=== PATIENT | male | born 1995 | race Caucasian/White ===

== ENCOUNTER → 2018-09-08 14:21 | Outpatient (CLI) | payer OTHER, SELFPAY ==
[2018-09-08 14:45] VITALS: BP 134/81; PULSE 70; RESP 18; TEMP 36.7; O2SAT 100; BMI 22.8
--- NOTE | 2018-09-08 15:06 | WMO.HTC_ITS ---
Problem List (1) Hemophilia B in male Status: Chronic Subjective Date of Service:: 09/08/18 Chief Complaint: F/u for Hemophilia History of Present Illness: 23y.o.man with Hemophilia B-activity 5%, comes for follow up. Needed replacement therapy once this yr when something feel on his foot. He feels well. No dental problems. 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 Family History Paternal Past Medical History: Unknown Maternal Past Medical History: Unknown Past Medical History (Last Updated 09/08/18 @ 14:38 by Esmer Tierney) Factor IX deficiency (Acute) Hemophilia B in male (Acute) Past Surgical History (Last Updated 09/08/18 @ 14:54 by Esmer Tierney) No history of previous surgery (Acute) Family History (Last Updated 09/08/18 @ 14:55 by Esmer Tierney) Other No pertinent family history Allergies/Adverse Reactions: Allergy/AdvReac Type Severity Reaction Status Date / Time aspirin AdvReac Severe BLEEDING Verified 09/08/18 14:44 Risk Factors Social History Smoking Status Never smoker Tobacco Risk Data: Tobacco Risk Smoking Status Never smoker Type of tobacco: Smokeless tobacco usage: Items/Day: Year started: Years used: Counseled to quit/cut down: Reason for no counseling performed: Reason for no pharmacotherapy: Tobacco use comments: Passive smoke exposure: No Substance Risk Drug use: No Caffeine use [drinks/day]: 1 Alcohol use: No Type of alcohol: Drinks per day: Has patient felt the need to cut down: Has the patient been annoyed by complaints: Has the patient felt guilty about drinking: 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: Comments: Review of Systems Constitutional:: Denies: Fever, Sweats, Weight loss, Appetite change, Chills Cardiovascular:: Denies: Chest pain, Palpitations, Dyspnea on exertion, Orthopnea, PND, Shortness of breath Respiratory: Denies: Cough, Hemoptysis, Shortness of Breath, Wheezing Gastrointestinal:: Denies: Abdominal pain, Nausea, Vomiting, Diarrhea, Constipation, Hematochezia Genitourinary: Denies: Dysuria, Hematuria, 15, Flank pain Musculoskeletal:: Denies: Back pain, Myalgia, Arthralgia Skin: Denies: Rash, Skin Changes, Wounds Neurological:: Denies: Headache, Dizziness, Visual changes, Tinnitus, Hearing loss Psychiatric: Denies: Anxiety, Depression, Homicidal Ideations, Suicidal Ideations Vital Signs Height 5 ft 9 in Weight: 70.125 kg Weight in Pounds 154.6 lbs Pulse Ox 100 Temperature 98.1 F Pulse Rate 70 Respiratory Rate 18 Blood Pressure 134/81 Blood Pressure Position Sitting - Physical Exam General: Alert, Oriented x3, No apparent distress HEENT: Atraumatic, PERRLA, EOMI, Normocephalic Oropharynx:: Dry mucosa Neck:: Supple, Trachea midline. Negative for: JVD, bilateral Cardiac:: Regular rate, Regular rhythm, Normal S1, Normal S2. Negative for: Murmur Lungs: Clear to auscultation, Excusion symmetrical. Negative for: Rhonchi, Wheezes Abdomen:: Bowel sounds x 4, Soft, Non-tender, Non-distended. Negative for: Hepatosplenomegaly Extremities:: Negative for: Cyanosis, Edema Neurological: Neuro grossly intact Skin:: Negative for: Lesions, Rash, Petechiae, Ecchymosis Psychiatric:: Appropriate affect, Euthymic Lymphatics:: Negative for: Cervical lymphadenopathy, Supraclavicular lymphadenopathy, Axillary lymphadenopathy Assessment and Plan Hemophilia B, clinically stable. Plan is to continue expectant management with Factor replacement as needed. RTC 1 yr. Primary Care Provider: No Primary Care Phys Referring Provider: Pardeep Rouse MD
== END ==
PROVIDERS: Referring Provider Internal Medicine Hematology & Oncology; Visit Provider Internal Medicine Medical Oncology
DX: D67 Hereditary factor IX deficiency (principal)

== ENCOUNTER 2019-07-06 08:40 | Outpatient (CLI) | payer OTHER, SELFPAY ==
--- NOTE | 2019-07-06 08:33 | HTC.HP4 ---
- Problem List (1) Hemophilia B in male Status: Chronic Subjective Date of Service:: 07/06/19 Chief Complaint: Hemophilia follow-up History of Present Illness: Hemophilia B acute visit May 2019 had acute upper GI bleed , transferred to [facility], transfused 2 units of packed red blood cells took 4 doses of F IX. 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 Family History Paternal Past Medical History: Unknown Maternal Past Medical History: Unknown Past Medical History (Last Updated 09/08/18 @ 14:38 by Esmer Tierney) Factor IX deficiency (Acute) Hemophilia B in male (Acute) Past Surgical History (Last Updated 09/08/18 @ 14:54 by Esmer Tierney) No history of previous surgery (Acute) Family History (Last Updated 09/08/18 @ 14:55 by Esmer Tierney) Other No pertinent family history Social History Smoking Status Never smoker Allergies/Adverse Reactions: Allergy/AdvReac Type Severity Reaction Status Date / Time aspirin AdvReac Severe BLEEDING Verified 09/08/18 14:44 Risk Factors Social History Smoking Status Never smoker Tobacco Risk Data: Tobacco Risk Smoking Status Never smoker Type of tobacco: Smokeless tobacco usage: Items/Day: Year started: Years used: Counseled to quit/cut down: Reason for no counseling performed: Reason for no pharmacotherapy: Tobacco use comments: Passive smoke exposure: Substance Risk Drug use: Caffeine use [drinks/day]: Alcohol use: Type of alcohol: Drinks per day: Has patient felt the need to cut down: Has the patient been annoyed by complaints: Has the patient felt guilty about drinking: 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: Comments: Review of Systems Constitutional:: Denies: Fever, Sweats, Weight loss, Appetite change, Chills Cardiovascular:: Denies: Chest pain, Palpitations, Dyspnea on exertion, Orthopnea, PND, Shortness of breath Respiratory: Denies: Cough, Hemoptysis, Shortness of Breath, Wheezing Gastrointestinal:: Denies: Abdominal pain, Nausea, Vomiting, Diarrhea, Constipation, Hematochezia Genitourinary: Denies: Dysuria, Hematuria, 15, Flank pain Musculoskeletal:: Denies: Back pain, Myalgia, Arthralgia Skin: Denies: Rash, Skin Changes, Wounds Neurological:: Denies: Headache, Dizziness, Visual changes, Tinnitus, Hearing loss Psychiatric: Denies: Anxiety, Depression, Homicidal Ideations, Suicidal Ideations - Physical Exam General: Alert, Oriented x3, No apparent distress HEENT: Atraumatic, PERRLA, EOMI, Normocephalic Oropharynx:: Pale mucosa, Dry mucosa Neck:: Supple, Trachea midline. Negative for: JVD, bilateral Cardiac:: Regular rate, Regular rhythm, Normal S1, Normal S2. Negative for: Murmur Lungs: Clear to auscultation, Excusion symmetrical. Negative for: Rhonchi, Wheezes Abdomen:: Soft, Non-tender, Non-distended. Negative for: Hepatosplenomegaly Extremities:: Negative for: Cyanosis, Edema Neurological: Neuro grossly intact Skin:: Negative for: Lesions, Rash, Petechiae, Ecchymosis Psychiatric:: Appropriate affect, Euthymic Lymphatics:: Negative for: Cervical lymphadenopathy, Supraclavicular lymphadenopathy, Axillary lymphadenopathy Assessment and Plan Hemophilia annual screening visit. Reviewed: - Need F/U with GI, update CBC & Fe profile following acute GI bleed 05/2019. -Take 1 iron tablet daily, continue until seen in follow-up 3 to 4 months. - On-demand therapy. - Appropriate oral hygiene and regular dental care is essential. - An appropriate exercise regimen encouraged for maintenance of a healthy weight, cardiovascular risk reduction, and positive effects on strength, flexibility, balance, joint stabilization, bone density, socialization, and psychological health. - Medicines that increase the risk of bleeding should be avoided namely anticoagulants, aspirin, and other nonsteroidal anti-inflammatory drugs (NSAIDs). - Herbal remedies and [id number]-[id number] supplements such as fish oil, may increase bleeding risk. - Pain can be treated with local measures (eg, cold packs, immobilization, splinting), and acetaminophen. - Cardiovascular disease prevention : focus on diet, exercise, smoking avoidance, and control of hypertension and hypercholesterolemia. - Planning for invasive procedures and elective surgery. Patient was also evaluated by the Hemophilia multidisciplinary team on site and Dr Rouse via video conferencing. Primary Care Provider: No Primary Care Phys Referring Provider: No Primary Care Phys
[2019-07-06 08:56] VITALS: BP 108/65; PULSE 56; RESP 16; TEMP 36.5; O2SAT 100; BMI 21.9
[2019-07-06 10:04] LABS: Absolute Lymphocyte Count 1.02 X10^3/uL (0.83-4.51); Absolute Neutrophil Count 1.9 X10^3/uL (2.0-7.7); Eosinophil# 0.08 X10^3/uL; Eosinophils% 2.4 % (0-5); Hematocrit 32.5 % (40-54); Hemoglobin 10.2 g/dL (13.0-16.5); Lymphocyte # 1.02 X10^3/ul (4.0); Lymphocyte % 30.3 % (19-41); Mean Corp Hgb Conc 31.4 g/dL (32-36); Mean Corpuscular Hgb 28.2 pg (27.0-32.0); Mean Corpuscular Volume 89.8 fL (80-94); Mean Platelet Vol. 8.7 fl (6.2-12.0); Monocyte# 0.36 X10^3/uL; Monocyte% 10.7 % (0-10); NRBC Flagged by Analyzer 0 % (0-5); Neutrophil % 56.3 % (47-70); Platelet Count 201 K/mm3 (150-450); RBC Distribution Width CV 14.1 % (11.6-14.6); RBC Distribution Width SD 46.5 fl (35.1-43.9); Red Blood Count 3.62 M/mm3 (4.6-6.2); White Blood Count 3.4 K/mm3 (4.4-11.0)
[2019-07-06 10:20] LABS: Ferritin 8 ng/mL (26-388); Iron 18 ug/dL (65-175); Iron Binding Capacity,Total 374 ug/dL (250-450); PERCENT IRON SATURATION 4.8 % (15.0-55.0)
[2019-07-06 11:05] LABS: Vitamin B12 596 pg/mL (211-911)
== END 2019-07-06 09:00 ==
PROVIDERS: Visit Provider Internal Medicine Hematology & Oncology
DX: D67 Hereditary factor IX deficiency (principal); Z87.19 Personal history of other diseases of the digestive system
CPT/HCPCS: 36415; 82607; 82728; 83540; 83550; 85025